=== PATIENT | male | born 2005 | race Caucasian/White ===

== ENCOUNTER 2024-07-30 18:31 | Emergency (ER) | payer BC ==
[~2024-07-30] VITALS: Ht 167.6 cm; Wt 65.9 kg
[2024-07-30 18:34] VITALS: BP 107/72; PULSE 72; RESP 18; TEMP 98.6; O2SAT 98
== END 2024-07-30 21:23 | disposition home or self-care (01) ==
LOC: ER 18:32
DX: N50.811 Right testicular pain (principal)
CPT/HCPCS: 76870; 93976; 99284